=== PATIENT | male | born 1945 | race African-American/Black ===

== ENCOUNTER 2024-08-04 22:11 | Emergency (ER) | payer OTHER, MEDICAID ==
[~2024-08-04] VITALS: Ht 182.9 cm; Wt 73.0 kg
[2024-08-04 22:17] VITALS: TEMP 36.8; O2SAT 99
[2024-08-04 23:33] LABS: BASOPHILS % 0.9 % (0.0-2.0); EOSINOPHILS % 3.6 % (0.0-5.0); HEMATOCRIT. 37.3 % (42.0-52.0); LYMPHOCYTES % 21.7 % (20.0-50.0); MEAN CORPUSCULAR HEMOGLOBIN 30.5 pg (28.0-32.0); MEAN CORPUSCULAR HGB CONC 32.3 g/dL (31.0-37.0); MEAN CORPUSCULAR VOLUME 94.5 fL (80.0-94.0); MEAN PLATELET VOLUME 9.3 fl (7.4-10.4); MONOCYTES % 10.7 % (2.0-8.0); NEUTROPHILS % 63.1 % (40.0-76.0); PLATELET 207 x1000/uL (130-400); RED BLOOD CELL COUNT 3.95 mill/uL (4.7-6.1); RED CELL DISTRIBUTION WIDTH 15.8 % (11.6-14.6); WHITE BLOOD COUNT 3.7 x1000/uL (4.5-11.0)
[2024-08-04 23:45] LABS: CHLORIDE 110 mEq/L (98-107); SODIUM 138 mEq/L (136-145)
[2024-08-04 23:46] LABS: CARBON DIOXIDE 21 mEq/L (21-32)
[2024-08-04 23:47] LABS: CALCIUM 9.2 mg/dL (8.7-10.4)
[2024-08-04 23:51] LABS: CREATININE 2.6 mg/dL (0.6-1.3)
[2024-08-04 23:52] LABS: AMMONIA < 17 uMol/L (<32); ETHANOL BLOOD < 10 mg/dL (<10); GLUCOSE 80 mg/dL (70-105); UREA NITROGEN BLOOD 28 mg/dL (9-23)
[2024-08-04 23:53] LABS: CREATINE KINASE 176 IU/L (46-171)
[2024-08-04 23:54] LABS: TROPONIN I HIGH SENSITIVITY 47 ng/L (3.0-53)
[2024-08-04 23:58] LABS: THYROID STIMULATING HORMONE 0.63 uIU/mL (0.55-4.78)
[2024-08-05] MEDS ORDERED: ASPIRIN 325MG EC TABLET PO NR (00:30)
[2024-08-05] MEDS: ATORVASTATIN CALCIUM 40MG TABLET PO NR (00:30)
[2024-08-05] MEDS ORDERED: CLONIDINE 0.1MG TABLET PO PRN (00:45)
[2024-08-05] MEDS ORDERED: HYDROCODONE/ACETAMINOPHEN 5/325MG TABLET PO PRN (00:45)
[2024-08-05] MEDS ORDERED: ACETAMINOPHEN 325MG TABLET PO PRN (00:45)
[2024-08-05] MEDS ORDERED: IPRATROPIUM/ALBUTEROL 0.5-3(2.5)MG/3ML NEB NEB PRN (00:45)
[2024-08-05] MEDS ORDERED: ONDANSETRON HCL 4MG/2ML INJ IV PRN (00:45)
[2024-08-05] MEDS: PANTOPRAZOLE SODIUM 40 MG/VIAL IV SCH (01:19)
[2024-08-05] MEDS: SODIUM CHLORIDE 0.9% 1,000 ML IV SCH (01:19)
[2024-08-05] MEDS: ASPIRIN 325MG TABLET PO NR (02:04)
[2024-08-05] MEDS: ASPIRIN 300MG SUPP PR NR (03:21)
[2024-08-05 03:33] VITALS: TEMP 98.2
[2024-08-05 06:20] VITALS: BP 166/109; PULSE 83; RESP 16; O2SAT 99
[2024-08-05] MEDS ORDERED: ENOXAPARIN 30MG/0.3ML SYR SUBCUT SCH (09:00)
[2024-08-05] MEDS ORDERED: ASPIRIN 81MG EC TABLET PO SCH (09:00)
[2024-08-05] MEDS ORDERED: ATORVASTATIN CALCIUM 40MG TABLET PO SCH (21:00)
== END 2024-08-05 06:41 | disposition short-term general hospital (02) ==
LOC: ER 22:11 → EDBEDREQDT 08-05 00:45 → EDBEDREQTM 08-05 00:45 → EDBEDREQ 08-05 00:45 → ER 08-05 06:41
DX: I11.0 Hypertensive heart disease with heart failure (principal); I50.9 Heart failure, unspecified; N28.9 Disorder of kidney and ureter, unspecified; I48.91 Unspecified atrial fibrillation; Z86.73 Personal history of transient ischemic attack (TIA), and cerebral infarction without residual deficits; Z79.899 Other long term (current) drug therapy; Z79.82 Long term (current) use of aspirin
CPT/HCPCS: 80048; 80320; 82140; 82550; 82962; 83880; 83690; 84443; 85025; 84484; 36415; 71045; 70450; 93005; 99285; 96361; 96374; J2470; J7030; 96375; G0480

== ENCOUNTER 2024-08-24 15:11 | Emergency (ER) | payer OTHER, MEDICAID ==
[~2024-08-24] VITALS: Ht 172.7 cm; Wt 64.0 kg
[2024-08-24 15:20] VITALS: O2SAT 99
[2024-08-24] MEDS: SODIUM CHLORIDE 0.9% (SEPSIS BOLUS) IV ONE (16:19)
[2024-08-24 16:26] LABS: BASOPHILS % 2.0 % (0.0-2.0); EOSINOPHILS % 6.2 % (0.0-5.0); HEMATOCRIT. 38.2 % (42.0-52.0); HEMOGLOBIN. 11.9 g/dL (14.0-18.0); LYMPHOCYTES % 16.9 % (20.0-50.0); MEAN PLATELET VOLUME 10.0 fl (7.4-10.4); MONOCYTES % 12.1 % (2.0-8.0); NEUTROPHILS % 62.8 % (40.0-76.0); PLATELET 178 x1000/uL (130-400); RED BLOOD CELL COUNT 3.85 mill/uL (4.7-6.1); RED CELL DISTRIBUTION WIDTH 15.3 % (11.6-14.6)
[2024-08-24 16:31] LABS: INR 1.0
[2024-08-24 16:32] LABS: ETHANOL BLOOD < 10 mg/dL (<10); UREA NITROGEN BLOOD 94 mg/dL (9-23)
[2024-08-24 16:34] LABS: ASPARTATE AMINOTRANSFERASE 21 IU/L (<34); BILIRUBIN DIRECT 0.1 mg/dL (<=3.0); BILIRUBIN TOTAL 0.4 mg/dL (0.1-1.0); PROTEIN TOTAL 8.9 g/dL (6.0-8.3)
[2024-08-24 16:37] LABS: CREATININE 6.4 mg/dL (0.6-1.3); TROPONIN I HIGH SENSITIVITY 200 ng/L (3.0-53)
[2024-08-24] MEDS: PIPERACILLIN/TAZO 3.375G/50ML 50 ML IV ONE (16:59)
[2024-08-24] MEDS: VANCOMYCIN 1G PREMIX 200 ML IV ONE (17:19)
[2024-08-24 19:48] VITALS: BP 140/97; PULSE 92; RESP 14; TEMP 36.5; O2SAT 94
== END 2024-08-24 20:03 | disposition short-term general hospital (02) ==
LOC: ER 15:11 → EDBEDREQ 15:46 → ER 20:03
DX: G93.41 Metabolic encephalopathy (principal); N19 Unspecified kidney failure; E87.0 Hyperosmolality and hypernatremia; E87.8 Other disorders of electrolyte and fluid balance, not elsewhere classified; I11.0 Hypertensive heart disease with heart failure; I48.91 Unspecified atrial fibrillation; I50.9 Heart failure, unspecified; I67.82 Cerebral ischemia; Z55.6 Problems related to health literacy; Z86.73 Personal history of transient ischemic attack (TIA), and cerebral infarction without residual deficits
CPT/HCPCS: 80076; 80048; 80320; 82140; 82550; 83880; 83605; 85025; 85610; 86850; 86900; 86901; 87040; 84484; 36415; 84145; 71045; 70450; 74176; 93005; 96367; 96361; 96365; 99291; J2543; J3370; J7030; G0480